=== PATIENT | female | born 1995 | race African-American/Black ===

== ENCOUNTER 2017-06-15 10:21 | Emergency (ER) | payer OTHER, MEDICAID ==
[~2017-06-15] VITALS: Ht 157.5 cm; Wt 59.0 kg
[2017-06-15] MEDS ORDERED: METH36TA PO (10:46)
[2017-06-15] MEDS ORDERED: IBUPROFEN 600MG TABLET PO ONE (12:00)
[2017-06-15 13:35] VITALS: BP 119/64
== END 2017-06-15 14:17 | disposition home or self-care (01) ==
LOC: ER 11:02
DX: M54.5 Low back pain (principal); R07.81 Pleurodynia; W19.XXXA Unspecified fall, initial encounter; Y93.51 Activity, roller skating (inline) and skateboarding; Y92.89 Other specified places as the place of occurrence of the external cause; Y99.8 Other external cause status
CPT/HCPCS: 71100; 72100; 81025; 99284

== ENCOUNTER 2017-08-14 08:53 | Emergency (ER) | payer OTHER, MEDICAID ==
[~2017-08-14 08:53] MED LIST: METH36TA PO
== END 2017-08-14 10:19 | disposition left against medical advice (07) ==
LOC: ER 08:59
DX: Z53.21 Procedure and treatment not carried out due to patient leaving prior to being seen by health care provider (principal)

== ENCOUNTER 2020-03-06 20:54 | Emergency (ER) | payer MEDICAID, OTHER ==
[~2020-03-06] VITALS: Ht 170.2 cm; Wt 85.0 kg
[2020-03-06 20:59] VITALS: BP 133/90
[2020-03-06] MEDS ORDERED: ACETAMINOPHEN 325MG TABLET PO STA (23:08)
== END 2020-03-06 23:34 | disposition home or self-care (01) ==
LOC: ER 20:54
DX: K02.9 Dental caries, unspecified (principal)
CPT/HCPCS: 81025; 99282

== ENCOUNTER 2020-06-09 02:08 | Emergency (ER) | payer MEDICAID ==
[~2020-06-09] VITALS: Ht 157.5 cm; Wt 83.6 kg
[2020-06-09 02:09] VITALS: BP 105/61
[2020-06-09] MEDS ORDERED: KETOROLAC 60MG/2ML VIAL IM STA (02:58)
== END 2020-06-09 04:03 | disposition home or self-care (01) ==
LOC: ER 02:08
DX: M79.672 Pain in left foot (principal)
CPT/HCPCS: 96372; 99283; J1885

== ENCOUNTER 2020-06-12 10:42 | Emergency (ER) | payer MEDICAID ==
[~2020-06-12] VITALS: Ht 157.5 cm; Wt 84.0 kg
[2020-06-12 10:47] VITALS: BP 107/77
[2020-06-12] MEDS ORDERED: BACITRACIN 15GM TUBE TOP ONE (11:15)
[2020-06-12] MEDS ORDERED: ACETAMINOPHEN 325MG TABLET PO ONE (11:15)
== END 2020-06-12 11:27 | disposition home or self-care (01) ==
LOC: ER 10:42
DX: S91.312A Laceration without foreign body, left foot, initial encounter (principal); X58.XXXA Exposure to other specified factors, initial encounter; Y93.89 Activity, other specified; Y92.89 Other specified places as the place of occurrence of the external cause; Y99.8 Other external cause status
CPT/HCPCS: 99283

== ENCOUNTER 2021-09-21 09:56 | Emergency (ER) | payer MEDICARE, MEDICAID ==
[~2021-09-21] VITALS: Ht 157.5 cm; Wt 74.0 kg
[2021-09-21 10:21] VITALS: BP 112/85
[2021-09-21] MEDS ORDERED: POLYMYXIN B SULFATE/TMP 10ML BOTTLE RIGHTEYE ONE (11:15)
[2021-09-21] MEDS ORDERED: CEFTRIAXONE SODIUM 1 G/VIAL IM ONE (11:15)
[2021-09-21] MEDS ORDERED: CIPROFLOXACIN 0.3% OPHTH SOLN 2.5ML RIGHTEYE ONE (12:15)
[2021-09-21] MEDS ORDERED: POLY10DR RIGHTEYE (13:10)
[2021-09-21 13:17] LABS: CLARITY URINE CLEAR (CLEAR); COLOR URINE YELLOW (YELLOW); KETONES URINE NEGATIVE (NEGATIVE); LEUKOCYTE ESTERASE URINE NEGATIVE (NEGATIVE); NITRITE URINE NEGATIVE (NEGATIVE); OCCULT BLOOD URINE NEGATIVE (NEGATIVE); PH URINE 8.5 (4.5-8.0); PROTEIN URINE NEGATIVE (NEGATIVE); SPECIFIC GRAVITY URINE 1.008 (1.005-1.030); UROBILINOGEN URINE 0.2 E.U./dL (0.2-1.0)
[2021-09-23 04:07] LABS: NEISSERIA GONORRHOEAE NAA Negative (Negative)
== END 2021-09-21 13:27 | disposition home or self-care (01) ==
LOC: ER 09:56
DX: H10.9 Unspecified conjunctivitis (principal); Z91.018 Allergy to other foods
CPT/HCPCS: 81003; 81025; 87491; 87591; 96372; 99283; J0696

== ENCOUNTER 2021-12-07 16:33 | Emergency (ER) | payer MEDICARE, MEDICAID ==
[~2021-12-07] VITALS: Ht 157.5 cm; Wt 70.0 kg
[~2021-12-07 16:33] MED LIST changes: +POLY10DR RIGHTEYE
[2021-12-07 16:49] VITALS: BP 111/72
== END 2021-12-07 17:25 | disposition home or self-care (01) ==
LOC: ER 16:33
DX: U07.1 COVID-19 (principal); Z91.018 Allergy to other foods
CPT/HCPCS: 87426; 99283